=== PATIENT | female | born 1945 | race Caucasian/White ===

== ENCOUNTER → 2020-12-31 | Outpatient (CLI) | payer MEDICARE, BC ==
[2014-07-02 22:02] VITALS: BP 137/63
[~2020-12-31] MED LIST: ALLEGRA60 M1 PO; ALLOPURINOL300 MG PO; BENAZEPRIL20 MG PO; BETAPACE80 MG PO; INDOCIN SR75 MG PO; MAXZIDE-25 (1 UDTAB PO; PRILOSEC 20MG20 MG PO; ZYLOPRIM300 MG PO
[2020-12-31 11:20] LABS: EOS # 0.1 (0.04-0.40); EOS % 1.6 % (1.0-5.0); HEMATOCRIT 44.9 % (37.0-47.0); HEMOGLOBIN 14.7 g/dL (12.5-16.0); LYMPH# 1.1 (1.50-4.00); MEAN CELL VOLUME 91 fl (78-100); MEAN CORPUSCULAR HEMOGLOBIN 30 pg (27-31); MEAN CORPUSCULAR HGB CONC 33 g/dL (33-37); MEAN PLATELET VOLUME 10.2 fl (7.4-10.4); MONO # 0.6 (0.20-0.80); NEU # 4.9 (1.40-6.50); PLATELET COUNT 225 K/mm3 (130-400); RED BLOOD COUNT 4.93 M/mm3 (4.10-5.30); RED CELL DISTRIBUTION WIDTH 13.1 % (11.5-14.5); WHITE BLOOD COUNT 6.8 K/mm3 (4.8-10.8)
[2020-12-31 11:29] LABS: POTASSIUM 4.2 mmol/L (3.5-5.1)
[2020-12-31 11:30] LABS: ALBUMIN 3.9 g/dL (3.4-4.8)
[2020-12-31 11:31] LABS: CALCIUM 9.1 mg/dL (8.3-10.5)
[2020-12-31 11:32] LABS: TOTAL PROTEIN 7.2 g/dL (6.2-8.1)
[2020-12-31 11:34] LABS: TOTAL BILIRUBIN 0.6 mg/dL (0.2-1.2)
== END ==
LOC: LAB 10:59
PROVIDERS: Family Medicine
DX: Z00.00 Encounter for general adult medical examination without abnormal findings (principal); E78.5 Hyperlipidemia, unspecified; E55.9 Vitamin D deficiency, unspecified

== ENCOUNTER → 2021-02-28 | Outpatient (CLI) | payer MEDICARE, BC ==
[2014-07-02 22:02] VITALS: BP 137/63
== END ==
LOC: MAMMO 10:00
DX: Z12.31 Encounter for screening mammogram for malignant neoplasm of breast (principal); M85.80 Other specified disorders of bone density and structure, unspecified site

== ENCOUNTER → 2021-02-28 | Outpatient (CLI) | payer MEDICARE, BC ==
[2014-07-02 22:02] VITALS: BP 137/63
== END ==
LOC: RAD 08:51 → MAMMO 09:15
DX: M85.80 Other specified disorders of bone density and structure, unspecified site (principal)

== ENCOUNTER → 2021-04-10 | Outpatient (CLI) | payer MEDICARE, BC ==
[2014-07-02 22:02] VITALS: BP 137/63
== END ==
LOC: RAD 12:13
DX: R42 Dizziness and giddiness (principal)

== ENCOUNTER 2021-12-02 11:59 | Emergency (ER) | payer MEDICARE, BC ==
[2021-12-02 15:07] LABS: BASO # 0.04 K/mm3 (0.02-0.10); EOS # 0.06 K/mm3 (0.04-0.40); EOS % 0.4 % (1.0-5.0); HEMATOCRIT 47.2 % (37.0-47.0); HEMOGLOBIN 16.4 g/dL (12.5-16.0); LYMPH# 2.04 K/mm3 (1.50-4.00); MEAN CELL VOLUME 90 fl (78-100); MEAN CORPUSCULAR HEMOGLOBIN 31 pg (27-31); MEAN CORPUSCULAR HGB CONC 35 g/dL (33-37); MEAN PLATELET VOLUME 10.3 fl (7.4-10.4); MONO # 1.07 K/mm3 (0.20-0.80); NEU # 11.13 K/mm3 (1.40-6.50); PLATELET COUNT 251 K/mm3 (130-400); RED BLOOD COUNT 5.25 M/mm3 (4.10-5.30); RED CELL DISTRIBUTION WIDTH 12.9 % (11.5-14.5); WHITE BLOOD COUNT 14.4 K/mm3 (4.8-10.8)
[2021-12-02 15:18] LABS: ALBUMIN 4.4 g/dL (3.4-4.8); POTASSIUM 3.5 mmol/L (3.5-5.1); SODIUM 137 mmol/L (136-145)
[2021-12-02 15:19] LABS: CALCIUM 11.1 mg/dL (8.3-10.5)
[2021-12-02 15:20] LABS: GLUCOSE 132 mg/dL (65-105); TOTAL PROTEIN 8.4 g/dL (6.2-8.1)
[2021-12-02 15:21] LABS: CARBON DIOXIDE 24 mmol/L (23-31)
[2021-12-02 15:22] LABS: TOTAL BILIRUBIN 0.9 mg/dL (0.2-1.2)
[2021-12-02 15:26] LABS: AST-SGOT 20 U/L (5-34)
[2021-12-02 15:27] LABS: ALT/SGPT 31 U/L (0-55)
[2021-12-02 15:29] LABS: D-DIMER 0.72 mg/L FEU (0.15-0.50)
[2021-12-02 15:40] LABS: TROPONIN-I < 0.030 ng/mL (<0.030)
[2021-12-02 17:18] VITALS: BP 171/94
== END 2021-12-02 16:52 | disposition home or self-care (01) ==
LOC: ED 11:59
PROVIDERS: Nurse Practitioner
DX: R07.1 Chest pain on breathing (principal); I48.91 Unspecified atrial fibrillation; M10.9 Gout, unspecified; I10 Essential (primary) hypertension; E66.9 Obesity, unspecified; Z79.899 Other long term (current) drug therapy; Z20.822 Contact with and (suspected) exposure to COVID-19
CPT/HCPCS: Q9967

== ENCOUNTER → 2021-12-13 | Outpatient (CLI) | payer MEDICARE, BC | LOC: CARDREHAB 07:52 | DX: Z01.810 Encounter for preprocedural cardiovascular examination (principal); R07.9 Chest pain, unspecified | CPT/HCPCS: A9500 ==

== ENCOUNTER → 2021-12-30 | Outpatient (CLI) | payer MEDICARE, BC ==
[2021-12-30 10:37] LABS: BASO # 0.03 K/mm3 (0.02-0.10); EOS # 0.19 K/mm3 (0.04-0.40); EOS % 3.2 % (1.0-5.0); HEMATOCRIT 43.1 % (37.0-47.0); HEMOGLOBIN 14.6 g/dL (12.5-16.0); LYMPH# 1.59 K/mm3 (1.50-4.00); MEAN CELL VOLUME 92 fl (78-100); MEAN CORPUSCULAR HEMOGLOBIN 31 pg (27-31); MEAN CORPUSCULAR HGB CONC 34 g/dL (33-37); MEAN PLATELET VOLUME 10.9 fl (7.4-10.4); MONO # 0.49 K/mm3 (0.20-0.80); NEU # 3.71 K/mm3 (1.40-6.50); PLATELET COUNT 217 K/mm3 (130-400); RED CELL DISTRIBUTION WIDTH 13.1 % (11.5-14.5)
[2021-12-30 12:52] LABS: ALBUMIN 3.9 g/dL (3.4-4.8)
[2021-12-30 12:53] LABS: POTASSIUM 3.9 mmol/L (3.5-5.1)
[2021-12-30 12:54] LABS: CALCIUM 9.1 mg/dL (8.3-10.5)
[2021-12-30 12:55] LABS: TOTAL PROTEIN 6.7 g/dL (6.2-8.1)
[2021-12-30 12:57] LABS: TOTAL BILIRUBIN 0.6 mg/dL (0.2-1.2)
== END ==
LOC: LAB 09:27
PROVIDERS: Family Medicine
DX: E55.9 Vitamin D deficiency, unspecified (principal); I10 Essential (primary) hypertension; M10.9 Gout, unspecified

== ENCOUNTER → 2022-01-22 | Outpatient (CLI) | payer MEDICARE, BC | LOC: RAD 09:52 | DX: K76.0 Fatty (change of) liver, not elsewhere classified (principal) | CPT/HCPCS: Q9967 ==

== ENCOUNTER → 2022-02-17 | Outpatient (CLI) | payer MEDICARE, BC | LOC: LAB 13:39 | DX: R73.09 Other abnormal glucose (principal) ==

== ENCOUNTER → 2022-04-09 | Outpatient (CLI) | payer MEDICARE, BC | LOC: MAMMO 03-06 08:30 | DX: Z12.31 Encounter for screening mammogram for malignant neoplasm of breast (principal) ==

== ENCOUNTER → 2022-04-17 | Outpatient (CLI) | payer MEDICARE, BC | LOC: RAD 12:28 | DX: N63.15 Unspecified lump in the right breast, overlapping quadrants (principal) ==

== ENCOUNTER → 2022-04-21 | Outpatient (CLI) | payer MEDICARE, BC | LOC: RAD 07:00 | DX: N60.01 Solitary cyst of right breast (principal) ==

== ENCOUNTER → 2022-08-26 | Outpatient (CLI) | payer MEDICARE, BC | LOC: LAB 09:28 | DX: R06.02 Shortness of breath (principal) ==

== ENCOUNTER → 2022-11-27 | Outpatient (CLI) | payer MEDICARE, BC ==
[2022-11-27 09:56] LABS: ALBUMIN 3.6 g/dL (3.4-4.8)
[2022-11-27 09:59] LABS: TOTAL PROTEIN 6.9 g/dL (6.2-8.1)
[2022-11-27 10:00] LABS: TOTAL BILIRUBIN 0.5 mg/dL (0.2-1.2)
[2022-11-27 10:04] LABS: DIRECT BILIRUBIN 0.3 mg/dL (0.0-0.5)
== END ==
LOC: LAB 09:26
PROVIDERS: Internal Medicine Interventional Cardiology
DX: E78.5 Hyperlipidemia, unspecified (principal)

== ENCOUNTER → 2023-01-06 | Outpatient (CLI) | payer MEDICARE, BC ==
[2023-01-06 09:11] LABS: BASO # 0.02 K/mm3 (0.02-0.10); EOS # 0.14 K/mm3 (0.04-0.40); EOS % 2.2 % (1.0-5.0); HEMATOCRIT 40.8 % (37.0-47.0); HEMOGLOBIN 13.7 g/dL (12.5-16.0); LYMPH# 1.72 K/mm3 (1.50-4.00); MEAN CELL VOLUME 94 fl (78-100); MEAN CORPUSCULAR HEMOGLOBIN 32 pg (27-31); MEAN CORPUSCULAR HGB CONC 34 g/dL (33-37); MEAN PLATELET VOLUME 10.6 fl (7.4-10.4); MONO # 0.52 K/mm3 (0.20-0.80); NEU # 3.95 K/mm3 (1.40-6.50); PLATELET COUNT 203 K/mm3 (130-400); RED BLOOD COUNT 4.34 M/mm3 (4.10-5.30); RED CELL DISTRIBUTION WIDTH 12.9 % (11.5-14.5); WHITE BLOOD COUNT 6.4 K/mm3 (4.8-10.8)
[2023-01-06 09:12] LABS: ALBUMIN 3.6 g/dL (3.4-4.8); POTASSIUM 3.8 mmol/L (3.5-5.1)
[2023-01-06 09:13] LABS: CALCIUM 9.6 mg/dL (8.3-10.5)
[2023-01-06 09:15] LABS: TOTAL PROTEIN 6.7 g/dL (6.2-8.1)
[2023-01-06 09:17] LABS: TOTAL BILIRUBIN 0.6 mg/dL (0.2-1.2)
== END ==
LOC: LAB 08:43
PROVIDERS: Family Medicine
DX: Z00.00 Encounter for general adult medical examination without abnormal findings (principal); E78.5 Hyperlipidemia, unspecified; M10.9 Gout, unspecified; E55.9 Vitamin D deficiency, unspecified; R73.9 Hyperglycemia, unspecified

== ENCOUNTER → 2023-07-16 | Outpatient (CLI) | payer MEDICARE, BC ==
[2023-07-16 10:10] LABS: ALBUMIN 3.5 g/dL (3.4-4.8)
[2023-07-16 10:13] LABS: TOTAL PROTEIN 6.7 g/dL (6.2-8.1)
[2023-07-16 10:14] LABS: TOTAL BILIRUBIN 0.7 mg/dL (0.2-1.2)
[2023-07-16 10:18] LABS: DIRECT BILIRUBIN 0.3 mg/dL (0.0-0.5)
== END ==
LOC: LAB 09:48
PROVIDERS: Internal Medicine Interventional Cardiology
DX: Z01.89 Encounter for other specified special examinations (principal)

== ENCOUNTER → 2023-07-20 | Outpatient (CLI) | payer MEDICARE, BC ==
[2023-07-20 10:05] LABS: HEMATOCRIT 42.1 % (37.0-47.0); HEMOGLOBIN 14.1 g/dL (12.5-16.0); MEAN PLATELET VOLUME 10.8 fl (7.4-10.4); RED BLOOD COUNT 4.48 M/mm3 (4.10-5.30); RED CELL DISTRIBUTION WIDTH 13.3 % (11.5-14.5); WHITE BLOOD COUNT 6.9 K/mm3 (4.8-10.8)
[2023-07-20 10:36] LABS: CALCIUM 9.3 mg/dL (8.3-10.5)
== END ==
LOC: LAB 09:47
DX: R94.39 Abnormal result of other cardiovascular function study (principal)